=== PATIENT | male | born 1965 | race Caucasian/White ===

== ENCOUNTER 2021-01-31 00:30 | Inpatient (IN) | payer BC ==
[~2021-01-31] VITALS: Ht 177.8 cm; Wt 88.0 kg
[2021-01-31 02:03] LABS: HEMOGLOBIN 15.4 gm/dl (14.0-17.5); RED BLOOD COUNT 4.91 M/UL (4.20-5.50); WHITE BLOOD COUNT 10.7 K/UL (4.5-11.0)
[2021-01-31 02:24] LABS: BUN/CREATININE RATIO 14 (0-10)
[2021-01-31] MEDS ORDERED: METOPROLOL TART50 MG PO (04:55)
[2021-01-31] MEDS ORDERED: ISOSORBIDE MONO30 MG PO (04:55)
[2021-01-31] MEDS ORDERED: NITROSTAT 0.40.4 MG SL (04:56)
[2021-01-31] MEDS ORDERED: SIMVASTATIN20 MG PO (04:57)
[2021-01-31] MEDS ORDERED: PLAVIX 75 MG TA75 MG PO (04:57)
[2021-01-31] MEDS ORDERED: LISINOPRIL10 MG PO (04:58)
[2021-01-31] MEDS ORDERED: VAZALORE81 MG PO (04:58)
[2021-01-31] MEDS ORDERED: GLUCOPHAGE XR500 M1 PO (05:04)
== END 2021-01-31 12:21 | disposition left against medical advice (07) | DRG 282 ==
LOC: ER1 00:30 → CDU 03:36 → CCU 03:36
PROVIDERS: Family Medicine; ADMIT Internal Medicine
DX: I21.4 Non-ST elevation (NSTEMI) myocardial infarction (principal); E78.5 Hyperlipidemia, unspecified; E11.9 Type 2 diabetes mellitus without complications; Z20.822 Contact with and (suspected) exposure to COVID-19; F17.210 Nicotine dependence, cigarettes, uncomplicated; I10 Essential (primary) hypertension; I25.10 Atherosclerotic heart disease of native coronary artery without angina pectoris; Z95.5 Presence of coronary angioplasty implant and graft; Z88.0 Allergy status to penicillin; Z88.8 Allergy status to other drugs, medicaments and biological substances; Z79.82 Long term (current) use of aspirin; Z82.49 Family history of ischemic heart disease and other diseases of the circulatory system; Z86.73 Personal history of transient ischemic attack (TIA), and cerebral infarction without residual deficits
CPT/HCPCS: 80053; 82550; 82553; 82962; 83036; 83874; 84484; 85025; 93005; 96374; 96375; 99285; J1650; J2270; J2405; J7030; Q9967; U0002